=== PATIENT | female | born 2005 | race Caucasian/White ===

== ENCOUNTER → 2024-04-11 14:14 | Outpatient (REF) | payer BC, SELFPAY ==
[2024-04-11 14:25] VITALS: BP 121/71; BP_SYST 67
== END ==
LOC: RADI 14:14
PROVIDERS: ATTENDING PHYSICIAN Orthopaedic Surgery; FAMILY PHYSICIAN Family Medicine
DX: M77.51 Other enthesopathy of right foot and ankle (principal); M79.671 Pain in right foot
CPT/HCPCS: 76882